=== PATIENT | female | born 1990 | race Caucasian/White ===

== ENCOUNTER 2016-08-18 17:57 | Emergency (ER) | payer OTHER, SELFPAY ==
--- NOTE | ~2016-08-18 | ER ---
PATIENT'S NAME: SHYANNE CASILLAS [facility] AGE: 26 Y [address] ROOM: [place] [id number] LOCATION: ED ADMIT DATE: 08/18/2016 ER/Outpatient Report DISCHARGE DATE: 08/18/2016 FAMILY PHYSICIAN: Melisa Smith MD ATTENDING PHYSICIAN: Angel Mata Time of Arrival: 1757 hours. Time of Evaluation: 1820 hours. CHIEF COMPLAINT: Lower abdominal pain. HISTORY OF PRESENT ILLNESS: This is a 26-year-old female, who presents to the ER. She states she had a sudden onset of lower abdominal pain approximately an hour prior to arrival. The patient states her pain is located all across her abdomen and does radiate into her back. It is causing her to have nausea. She has had one bout of diarrhea with this as well. She has had no recent illness. No fever or chills. She states she had an episode of this similar several years ago, but they never found out what happened to her at that time. She states that she just switched control pills a month ago, and she states that she has been day 2 of her menstrual cycle. ALLERGIES: NO KNOWN ALLERGIES. MEDICATIONS: Please see medication list in nurse's notes. PAST MEDICAL HISTORY: Depression, anxiety, asthma. PAST SURGICAL HISTORY: Heart surgery at age of 5, colonoscopy with polyps. SOCIAL HISTORY: Denies smoking, drug, or alcohol use. REVIEW OF SYSTEMS: A 10-point review of systems was completed and was negative with the exception of those discussed in the HPI. PHYSICAL EXAMINATION: VITAL SIGNS: Height 5 feet 7 inches stated, weight 99.2 kg taken, blood pressure 165/85, pulse 74, respirations 18, temperature 99.1 degrees PATIENT'S NAME: SHYANNE CASILLAS [facility] AGE: 26 Y [address] ROOM: [place], [place] [address] LOCATION: ED ADMIT DATE: 08/18/2016 ER/Outpatient Report DISCHARGE DATE: 08/18/2016 FAMILY PHYSICIAN: Melisa Smith MD ATTENDING PHYSICIAN: Angel Mata tympanically, saturations 100% on room air. José Miguel Coma Score is 15. GENERAL: An alert, calm, well-developed female, in mild to moderate distress. HEENT: Head: Normocephalic. Eyes: Pupils are equal and reactive to light. Does display moist mucous membranes. LUNGS: Clear to auscultation bilaterally. No wheezes or crackles. Normal respiratory effort. HEART: Regular rate and rhythm. No lifts, thrills, or murmurs. ABDOMEN: She does have some tenderness in her suprapubic area with palpation equally on both the right and the left sides of her abdomen. She has no tenderness in her upper quadrants. She has no guarding or rebound tenderness. Good bowel sounds throughout. No masses are palpated. EXTREMITIES: No clubbing, cyanosis, or edema. Full range of motion of all limbs. LABORATORY DATA AND X-RAYS: CBC: White count is 8.9, hemoglobin is 11.6, platelets 283, ANC is 7.3. CMS was unremarkable. Urinalysis was negative for any infection. Her urine HCG was negative. Ultrasound was done, does show moderate amount of free fluid in the cul-de-sac. She also has a 3.5 cm simple cyst on the right ovary. She has good blood flow to each ovary. IMPRESSION: Lower abdominal pain most likely to a recent ruptured ovarian cyst. ASSESSMENT AND PLAN: We did give the patient a shot of Toradol 60 mg intramuscularly here in the ER. She did tolerate this well, and this improved her pain down to a one. We will dismiss the patient to home. She needs to continue to monitor her symptoms. She may take Tylenol or ibuprofen as needed for pain, and she is to follow up with primary care physician for followup care. The patient understands and agrees with care. SHARONA MICHELE PA-C FOR DO [facility] TELLEZ/kylah /[id number] d: t: 08/27/16 1234, OUTPATIENT REPORT
[2016-08-18 18:43] LABS: BILIRUBIN URINE NEGATIVE (NEGATIVE); BLOOD URINE 250 /UL (NEGATIVE); COLOR URINE YELLOW (YELLOW); GLUCOSE URINE NEGATIVE (NEGATIVE); KETONE URINE 5 mg/dL (NEGATIVE); LEUKOCYTES URINE 25 /UL (NEGATIVE); NITRITE URINE NEGATIVE (NEGATIVE); PROTEIN URINE NEGATIVE (NEGATIVE); UROBILINOGEN URINE NORMAL (NORMAL)
[2016-08-18 18:48] LABS: TURBIDITY URINE 1+ (CLEAR)
[2016-08-18 18:50] LABS: WBC URINE RARE #/HPF (NEGATIVE)
[2016-08-18 18:51] LABS: BACTERIA URINE NEGATIVE (NEGATIVE); MUCUS URINE 1+ (NEGATIVE)
[2016-08-18 19:47] LABS: BASOPHIL % 0.5 %; EOSINOPHIL # 0.1 K/uL (0.0-0.5); EOSINOPHIL % 0.9 %; HEMATOCRIT 35.8 % (33.0-46.0); HEMOGLOBIN 11.6 g/dL (11.0-15.0); IMMATURE GRANULOCYTE % 0.2 %; LYMPHOCYTE # 1.1 K/uL (0.8-4.0); LYMPHOCYTE % 12.3 %; MCH 28.3 pg (27.0-34.0); MCHC 32.4 gm/dL (32.0-36.5); MCV 87.3 fl (83.0-98.0); MONOCYTE # 0.4 K/uL (0.0-1.0); MONOCYTE % 4.2 %; NEUTROPHIL # (ANC) 7.3 K/uL (1.8-7.8); NEUTROPHIL % 81.9 %; NRBC % 0 /100WBC (0-0.00); PLATELET COUNT 283 K/uL (150-450); RDW-CV 13.6 % (11.9-14.6); WBC 8.9 K/uL (4.0-11.0)
[2016-08-18 20:04] LABS: ALBUMIN 3.7 gm/dL (3.5-5.0); ALK PHOS 54 IU/L (33-138); ALT 13 IU/L (12-78); AST 10 IU/L (10-40); BLOOD UREA NITROGEN 11 mg/dL (6-24); CALCIUM 8.8 mg/dL (8.5-10.5); CHLORIDE 107 mMol/L (96-110); CO2 26 mMol/L (22-32); CREATININE 0.8 mg/dL (0.5-1.1); ESTIMATED GFR (MDRD EQUATION) > 60; SODIUM 142 mMol/L (135-145); TOTAL BILIRUBIN 0.2 mg/dL (0.0-1.5); TOTAL PROTEIN 7.1 g/dL (6.0-8.4)
== END 2016-08-18 20:37 | disposition disaster alternative care site (69) ==
LOC: GMED 17:57
PROVIDERS: Emergency Medicine
DX: R10.30 Lower abdominal pain, unspecified (principal); F32.9 Major depressive disorder, single episode, unspecified; F41.9 Anxiety disorder, unspecified; J45.909 Unspecified asthma, uncomplicated
CPT/HCPCS: J1885